=== PATIENT | female | born 1995 | race Caucasian/White ===

== ENCOUNTER 2018-04-12 19:38 | Emergency (ER) | payer BC ==
[2018-04-12] MEDS ORDERED: NS 1,000 ML IV ONE ×2 (19:54→20:35)
[2018-04-12] MEDS ORDERED: LORazepam 2 MG/ML INJ IVP ONE ×3 (19:54→22:09)
--- NOTE | 2018-04-12 19:54 | CPEKG ---
Heart Rate: 137 RR Interval: 438 P-R Interval: 124 QRSD Interval: 86 QT Interval: 304 QTC Interval: 459 P Worthing[place]: 28 QRS [place]thing[place]: -48 T Wave Wor[place]: 69 EKG Severity - ABNORMAL ECG - EKG Impression: SINUS TACHYCARDIA EKG Impression: LEFT AXIS DEVIATION EKG Impression: INFERIOR Q WAVES, PROBABLY NORMAL VARIATION EKG Impression: BORDERLINE T ABNORMALITIES, ANT-LAT LEADS Electronically Signed By: Negrito Calvo 18-Apr-2018 21:57:43
--- NOTE | 2018-04-12 19:54 | EDPHY ---
General Time Seen by Provider: 04/12/18 19:47 Narrative: CHIEF COMPLAINT: "panic attack" HISTORY OF PRESENT ILLNESS: Patient presents with complaints of "panic attack." She states that earlier this afternoon she became acutely and suddenly very anxious. 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 She says that she has felt her heart racing, she has felt short of breath, she has had difficulty taking a deep breath. She has felt very anxious and warm. She has some spasm and tingling of the hands and feet. She has no improvement of her symptoms since onset. Aggravated thinking about her school workload with increasing stressors early next week. She denies any illicit substance use. She does take Adderall for her studies. She took 20 mg this morning at 9:00 a.m.. No recent travel, trauma or surgery. No history of venous thrombolic event. No oral contraceptive use. No other associated complaints or modifying factors. REVIEW OF SYSTEMS: Ten systems reviewed and are negative unless otherwise noted in the HPI PCP: [facility] SPECIALISTS: None PAST MEDICAL HISTORY: Depression, "orthopedic injuries". IUD in place PAST SURGICAL HISTORY: No recent surgeries SOCIAL HISTORY: Occasional tobacco user. Occasional alcohol marijuana user. Originally from [place]. [employer] student FAMILY HISTORY: Noncontributory EXAMINATION General Appearance: Alert, no distress. Anxious and hyperventilating. Well- developed well-nourished. Head: normocephalic, atraumatic Eyes: Pupils equal and round, no conjunctival pallor or injection ENT, Mouth: Mucous membranes moist Neck: Normal inspection, supple, non-tender Respiratory: Tachypneic with lungs clear in all wild. No crackles, wheezing or rhonchi. No diminished or consolidation. Cardiovascular: Tachycardic rate. No murmur. Radial pulses are symmetric at 2 +. DP pulses symmetric 2+. Gastrointestinal: Abdomen is soft and nontender Back: non-tender, no bony abnormalities Neurological: GCS 15. A&O, nonfocal, normal gait. Skin: Warm and dry, no rash Extremities: Nontender, no pedal edema Psychiatric: Anxious mood and affect. Denies SI. DIFFERENTIAL DIAGNOSES: Including but not limited to acute anxiety reaction, sinus tachycardia, SVT, PSVT, PE, ACS MDM: 7:55 p.m. Anxious appearing female with likely acute anxiety reaction. She is tachycardic but awake and alert. She has hyperventilating with some carpopedal spasms and perioral paresthesia. She has no conduction delay or malignant rhythm on her EKG. I have ordered IV fluid and Ativan. We will keep her on a environmental monitoring technician and re-evaluate shortly. I have discussed with Dr. Vee 8:30 p.m. Patient re-evaluated. Her heart rate has decreased, and she is starting to feel better. She is still anxious. She no longer has carpopedal spasm. At this time she has no complaints of chest pain or shortness of breath. I have ordered an additional Ativan dosing as well as a 2nd L of IV fluid. She is comfortable this plan as well. 9:15 p.m. Notified by RN that the patient is now complaining of some nausea. I have ordered IV promethazine 12.5 mg. 10:00 p.m. Patient re-evaluated. Nausea has resolved. She still tachycardic but has no complaints of chest pain of any kind. Have ordered additional mg of Ativan and will re-evaluate. 10:30 p.m. Patient re-evaluated. Still tachycardic but has no chest pain. She is feeling better after the additional dose of Ativan. At this time she is asking to be discharged home. I do feel she is stable to do so as she has no complaints of pain, I did discuss my concern for tachycardia. I recommended further evaluation and treatment but she would like to go home. We discussed risks, benefits and alternatives she is comfortable going home with soon these risks. We discussed short course of Ativan at home. We discussed returning here for any chest pain of any kind. We discussed follow up [facility] at tomorrow without fail or returning here if she still has a symptoms tomorrow. She is comfortable this plan and discharged home stable condition. SUPERVISION: Patient was independently examined, but I discussed the case with my secondary supervising physician Dr. Vee - History Smoking Status: Current some day smoker - Objective Vital Signs: Initial Vital Signs Temperature (C) 97.3 F 04/12/18 19:41 Heart Rate 152 H 04/12/18 19:41 Respiratory Rate 16 04/12/18 19:41 Blood Pressure 129/89 H 04/12/18 19:41 O2 Sat (%) 97 04/12/18 19:41 O2 Delivery Mode Room Air Allergies/Adverse Reactions: No Known Allergies Allergy (Unverified 04/12/18 19:44) Home Medications: Medication Instructions Recorded Amphet Asp and D/Amphet [Adderall 04/12/18 20 mg (*)] PRISTIQ 04/12/18 Remeron soltab 15 mg (*) 04/12/18 Laboratory Results: Laboratory Results 04/12/18 19:55 04/12/18 19:55 04/12/18 04/12/18 04/12/18 19:55 19:55 19:55 WBC 9.02 10^3/uL 10^3/uL (3.80-9.50) RBC 5.23 10^6/uL 10^6/uL (4.18-5.33) Hgb 15.5 g/dL g/dL (12.6-16.3) Hct 46.4 % % (38.0-47.0) MCV 88.7 fL fL (81.5-99.8) MCH 29.6 pg pg (27.9-34.1) MCHC 33.4 g/dL g/dL (32.4-36.7) RDW 12.7 % % (11.5-15.2) Plt Count 288 10^3/uL 10^3/uL (150-400) MPV 9.9 fL fL (8.7-11.7) Neut % (Auto) 61.2 % % (39.3-74.2) Lymph % (Auto) 33.4 % % (15.0-45.0) [place] % (Auto) 4.9 % % (4.5-13.0) Eos % (Auto) 0.0 % L % (0.6-7.6) Baso % (Auto) 0.3 % % (0.3-1.7) Nucleat RBC Rel Count 0.0 % % (0.0-0.2) Absolute Neuts (auto) 5.52 10^3/uL 10^3/uL (1.70-6.50) Absolute Lymphs (auto) 3.01 10^3/uL H 10^3/uL (1.00-3.00) Absolute Monos (auto) 0.44 10^3/uL 10^3/uL (0.30-0.80) Absolute Eos (auto) 0.00 10^3/uL L 10^3/uL (0.03-0.40) Absolute Basos (auto) 0.03 10^3/uL 10^3/uL (0.02-0.10) Absolute Nucleated RBC 0.00 10^3/uL 10^3/uL (0-0.01) Immature Gran % 0.2 % % (0.0-1.1) Immature Gran # 0.02 10^3/uL 10^3/uL (0.00-0.10) Sodium 139 mEq/L mEq/L (135-145) Potassium 3.7 mEq/L mEq/L (3.3-5.0) Chloride 103 mEq/L mEq/L (97-110) Carbon Dioxide 17 mEq/l L mEq/l (22-31) Anion Gap 19 mEq/L H mEq/L (8-16) BUN 11 mg/dL mg/dL (7-23) Creatinine 0.7 mg/dL mg/dL (0.6-1.0) Estimated GFR > 60 Glucose 129 mg/dL H mg/dL (70-100) Calcium 10.2 mg/dL mg/dL (8.5-10.4) Lipase 51 IU/L IU/L (23-300) TSH 1.290 uIU/mL uIU/mL (0.465-4.680) Beta HCG, Qual NEGATIVE Ethyl Alcohol < 10 mg/dL mg/dL (0-10) Medications Given: Discontinued Medications Sodium Chloride (Ns) 1,000 mls @ 0 mls/hr IV EDNOW ONE; Wide Open PRN Reason: Protocol Stop: 04/12/18 19:55 Last Admin: 04/12/18 19:59 Dose: 1,000 mls Sodium Chloride (Ns) 1,000 mls @ 0 mls/hr IV EDNOW ONE; Wide Open PRN Reason: Protocol Stop: 04/12/18 20:36 Last Admin: 04/12/18 20:41 Dose: 1,000 mls Lorazepam (Ativan Injection) 1 mg IVP EDNOW ONE Stop: 04/12/18 19:55 Last Admin: 04/12/18 19:59 Dose: 1 mg Lorazepam (Ativan Injection) 1 mg IVP EDNOW ONE Stop: 07/06/18 20:35 Last Admin: 04/12/18 20:42 Dose: 1 mg Lorazepam (Ativan Injection) 1 mg IVP EDNOW ONE Stop: 04/12/18 22:10 Last Admin: 04/12/18 22:14 Dose: 1 mg Lorazepam (Ativan 1 Mg Prepack#4) 1 btl TAKEHOME EDNOW ONE Stop: 04/12/18 22:31 Last Admin: 04/12/18 22:58 Dose: 1 btl Promethazine HCl (Phenergan) 12.5 mg IVP ONCE ONE Stop: 04/12/18 21:20 Last Admin: 04/12/18 21:21 Dose: 12.5 mg Departure - Departure Disposition: Home, Routine, Self-Care Clinical Impression: Anxiety reaction, Tachycardia Condition: Good Instructions: Lorazepam (By mouth), Anxiety (ED) Additional Instructions: 1. Medications as provided as needed 2. Follow up with [facility] at tomorrow without fail 3. Return here for any worsening symptoms, any chest pain of any kind Referrals: [facility],. [Clinic] - As per Instructions Lory Quiles MD [Medical Doctor] - As per Instructions
[2018-04-12 21:08] LABS: PLATELET COUNT 288 10^3/uL (150-400)
[2018-04-12] MEDS ORDERED: PROMETHAZINE HCL 25 MG/ML INJ ONE (21:19)
[2018-04-12] MEDS ORDERED: PROMETHAZINE HCL 25 MG/ML INJ IVP ONE (21:19)
[2018-04-12] MEDS ORDERED: LORAZEPAM 1 MG PREPACK#4 BTL TAKEHOME ONE (22:30)
[2018-04-12 23:01] VITALS: BP 118/83
== END 2018-04-12 23:01 | disposition home or self-care (01) ==
DX: F41.1 Generalized anxiety disorder (principal); R00.0 Tachycardia, unspecified; E86.9 Volume depletion, unspecified; F17.200 Nicotine dependence, unspecified, uncomplicated
CPT/HCPCS: 96374; G0480; J2060; J2550